=== PATIENT | female | born 1985 ===

== ENCOUNTER 2020-09-10 19:15 | Emergency (ER) | payer MEDICARE, MEDICAID ==
[~2020-09-10] VITALS: Ht 160 cm; Wt 75.0 kg
[~2020-09-10 19:15] MED LIST: BETA15OI6 TP; CALC500T14 PO; CIPR500T3 PO; FAMO20TA7 PO; FLUO20CA19 PO; LACT10SO24 PO; METR500T PO; ONDA4TAB13 SL; OXYC5TAB2 PO; OXYC5TAB98 PO; POLY17PO5 PO; SPIR25TA PO; TEMA30CA6 PO; TRAM50TA2 PO
[2020-09-10] MEDS ORDERED: ONDANSETRON ODT 4 MG PO ONE (19:30)
[2020-09-10] MEDS ORDERED: PLEASE ENTER HEIGHT AND WEIGHT MC SCH (19:30)
[2020-09-10] MEDS ORDERED: HYDROmorphone 1 MG/ML, 1ML INJ IM ONE (19:30)
--- NOTE | 2020-09-10 19:41 | NUR ---
BIB [facility] FOR BILAT FEET AND BACK PAIN X 3 DAYS. PT FOUND LAYING ON GROUND IN FRONT OF [employer] HOTEL SCREAMING FOR HELP. PTS CLOTHING SOAKED IN URINE. PT CHANGED INTO HOSPITAL GOWN, CLOTHES BAGGED. PT VAGUE WITH SYMPTOMS BUT IS COMPLAINGING OF BILAT FEET SWELLING AND LEFT HAND SWELLING. PT IS KEEPING EYES SHUT STATING HER EYELIDS ARE ALSO BOTHERING HER TO OPEN BUT SHE IS ABLE TO, DENIES VISION CHANGES. PT ALSO COMPLAINTS SHE IS COLD. PT CONNECTED TO DIRECTOR OF ENVIRONMENTAL SERVICES AND CONTINIOUS PULSE OX.
--- NOTE | 2020-09-10 19:44 | NUR ---
PT TO IMAGING
[2020-09-10] MEDS ORDERED: ONDANSETRON ODT 4 MG ONE (19:52)
[2020-09-10] MEDS ORDERED: HYDROmorphone 1 MG/ML, 1ML INJ ONE (19:52)
--- NOTE | 2020-09-10 20:08 | NUR ---
BACK FROM IMAGING
--- NOTE | 2020-09-10 20:38 | NUR ---
pt placed on purewick
--- NOTE | 2020-09-10 20:38 | NUR ---
in and cath collected for ua and walked to lab
[2020-09-10 21:10] LABS: ALBUMIN 2.2 g/dL (3.4-5.0); ANION GAP 6 mmol/L (5-15); CHLORIDE 110 mmol/L (98-107)
[2020-09-10 21:11] LABS: MICROSCOPIC INDICATED
[2020-09-10 21:18] LABS: ALANINE AMINOTRANSFERASE 30 U/L (12-78); ALKALINE PHOSPHATASE 115 U/L (45-117); BILIRUBIN,TOTAL 4.6 mg/dL (0.2-1.0); CREATININE 0.48 mg/dL (0.55-1.02); TOTAL PROTEIN 6.8 g/dL (6.4-8.2); TROPONIN I < 0.015 ng/mL (0.000-0.045)
[2020-09-10 21:23] LABS: BASOPHILS % (AUTO) 0 % (0-1); EOSINOPHILS % (AUTO) 1 % (1-7); LYMPHOCYTES % (AUTO) 26 % (22-44); MEAN CORPUSCULAR HEMOGLOBIN 34.1 pg (27.0-34.8); MEAN CORPUSCULAR HGB CONC 35.4 g/dL (32.4-35.8); MEAN PLATELET VOLUME 8.3 fL (7.4-10.4); MONOCYTES % (AUTO) 6 % (2-9); NEUTROPHILS % (AUTO) 66 % (42-75); PLATELET COUNT 117 x10^3/uL (130-400); RED BLOOD COUNT 3.85 x10^6/uL (3.82-5.3); RED CELL DISTRIBUTION WIDTH 15.2 % (9.6-15.2)
[2020-09-10 21:26] LABS: MD NO
[2020-09-10] MEDS ORDERED: CEFDINIR 300 MG CAPSULE PO ONE (22:00)
[2020-09-10] MEDS ORDERED: CEFDINIR 300 MG CAPSULE ONE (22:15)
[2020-09-10 23:13] VITALS: BP 107/54
== END 2020-09-10 23:15 | disposition home or self-care (01) ==
LOC: EDBD → ED 19:43 → MERGE 19:43 → ED 23:15
DX: R60.0 Localized edema (principal); E88.09 Other disorders of plasma-protein metabolism, not elsewhere classified; N10 Acute pyelonephritis; F17.210 Nicotine dependence, cigarettes, uncomplicated; F15.10 Other stimulant abuse, uncomplicated; Z72.9 Problem related to lifestyle, unspecified; R94.31 Abnormal electrocardiogram [ECG] [EKG]; M19.90 Unspecified osteoarthritis, unspecified site; I10 Essential (primary) hypertension; Z90.49 Acquired absence of other specified parts of digestive tract; Z90.89 Acquired absence of other organs; Z59.0 Homelessness
CPT/HCPCS: 36415; 71045; 80053; 81001; 83690; 83880; 84484; 85025; 87086; 93005; 93970; 96372; 99285; 99406; J1170; Q0162